=== PATIENT | female | born 1960 | race Caucasian/White ===

== ENCOUNTER → 2016-10-01 | Outpatient (CLI) | payer OTHER ==
[2016-10-01 12:51] LABS: PATH.CAST-FLAG NOT PRESENT; SPERM-FLAG NOT PRESENT; SRC-FLAG NOT PRESENT; XTAL-FLAG NOT PRESENT; YLC-FLAG NOT PRESENT
[2016-10-01 13:05] LABS: BLOOD UREA NITROGEN 17 mg/dL (7-18)
[2016-10-01 13:07] LABS: ASPARTATE AMINO TRANSFERASE 11 U/L (15-37); TRANSFERRIN 226 mg/dL (200-360)
[2016-10-01 13:14] LABS: TOTAL IRON BINDING CAPACITY 289 mcg/dL (250-450)
== END | disposition home or self-care (01) ==
LOC: CFH 06:48
PROVIDERS: ATTEND Nurse Practitioner Primary Care
DX: Z13.220 Encounter for screening for lipoid disorders (principal); Z12.4 Encounter for screening for malignant neoplasm of cervix; Z12.11 Encounter for screening for malignant neoplasm of colon; Z12.39 Encounter for other screening for malignant neoplasm of breast; R53.83 Other fatigue; M85.80 Other specified disorders of bone density and structure, unspecified site; E55.9 Vitamin D deficiency, unspecified; J30.9 Allergic rhinitis, unspecified; Z72.0 Tobacco use; Z78.9 Other specified health status
CPT/HCPCS: 36415; 80053; 80061; 81001; 82248; 82728; 83036; 83540; 83550; 84443; 84466; 85025; 87077; 87086; 87186

== ENCOUNTER → 2017-03-17 | Outpatient (CLI) | payer OTHER | END | disposition home or self-care (01) | LOC: CFH 08:13 | PROVIDERS: ATTEND Nurse Practitioner Primary Care | DX: Z13.220 Encounter for screening for lipoid disorders (principal); Z12.4 Encounter for screening for malignant neoplasm of cervix; Z12.39 Encounter for other screening for malignant neoplasm of breast; Z12.11 Encounter for screening for malignant neoplasm of colon; R53.83 Other fatigue; M85.80 Other specified disorders of bone density and structure, unspecified site; E55.9 Vitamin D deficiency, unspecified; J30.9 Allergic rhinitis, unspecified; Z83.3 Family history of diabetes mellitus; E78.2 Mixed hyperlipidemia; R91.8 Other nonspecific abnormal finding of lung field; N39.0 Urinary tract infection, site not specified; G47.00 Insomnia, unspecified; Z78.9 Other specified health status; Z72.0 Tobacco use | CPT/HCPCS: 36415; 80061 ==

== ENCOUNTER → 2017-12-01 | Outpatient (CLI) | payer OTHER, BC ==
[2017-12-01 12:49] LABS: ALBUMIN 3.6 g/dL (3.4-5.0); ANION GAP 7 mmol/L (5-15); CALCIUM 8.8 mg/dL (8.5-10.1); CHLORIDE 111 mmol/L (98-107)
[2017-12-01 13:02] LABS: ALANINE AMINOTRANSFERASE 34 U/L (12-78); ALKALINE PHOSPHATASE 74 U/L (45-117); BILIRUBIN,TOTAL 0.4 mg/dL (0.2-1.0); CHOL/HDL RATIO 3.2; CHOLESTEROL, TOTAL 126 mg/dL (140-239); CREATININE 0.83 mg/dL (0.55-1.02); HDL CHOL % 31 % (28-40); HDL CHOLESTEROL (DIRECT) 39 mg/dL (40-60); HEMOGLOBIN A1C 5.9 % (4.2-6.3); LDL CHOLESTEROL,CALCULATED 65 mg/dL (54-169); LDL/HDL RATIO 1.7 (0.5-3.0); TOTAL PROTEIN 6.8 g/dL (6.4-8.2); TRIGLYCERIDES 111 mg/dL (50-200); VLDL CHOLESTEROL 22 mg/dL (0-25)
== END | disposition home or self-care (01) ==
LOC: CFH 07:19
PROVIDERS: ATTEND Nurse Practitioner Primary Care
DX: Z12.4 Encounter for screening for malignant neoplasm of cervix (principal); Z12.39 Encounter for other screening for malignant neoplasm of breast; Z12.11 Encounter for screening for malignant neoplasm of colon; Z13.220 Encounter for screening for lipoid disorders; E55.9 Vitamin D deficiency, unspecified; E78.2 Mixed hyperlipidemia; G47.00 Insomnia, unspecified; J30.9 Allergic rhinitis, unspecified; R53.83 Other fatigue; M85.80 Other specified disorders of bone density and structure, unspecified site; Z83.3 Family history of diabetes mellitus; Z72.0 Tobacco use
CPT/HCPCS: 36415; 80053; 80061; 82306; 83036; 84443

== ENCOUNTER → 2018-06-02 | Outpatient (CLI) | payer OTHER, BC ==
[2018-06-02 12:46] LABS: ALBUMIN 3.6 g/dL (3.4-5.0); BILIRUBIN, DIRECT 0.1 mg/dL (0.1-0.2)
[2018-06-02 12:48] LABS: BILIRUBIN,INDIRECT 0.3 mg/dL (0.0-2.0); BILIRUBIN,TOTAL 0.4 mg/dL (0.2-1.0); CHOL/HDL RATIO 2.8; LDL/HDL RATIO 1.5 (0.5-3.0); TOTAL PROTEIN 6.9 g/dL (6.4-8.2)
[2018-06-02 13:07] LABS: HEMOGLOBIN A1C 5.8 % (4.2-6.3)
== END | disposition home or self-care (01) ==
LOC: CFH 07:39
PROVIDERS: ATTEND Nurse Practitioner Primary Care
DX: Z12.11 Encounter for screening for malignant neoplasm of colon (principal); Z13.220 Encounter for screening for lipoid disorders; Z12.4 Encounter for screening for malignant neoplasm of cervix; E55.9 Vitamin D deficiency, unspecified; J30.9 Allergic rhinitis, unspecified; E78.2 Mixed hyperlipidemia; G47.00 Insomnia, unspecified; R53.83 Other fatigue; M85.80 Other specified disorders of bone density and structure, unspecified site
CPT/HCPCS: 36415; 80061; 80076; 83036

== ENCOUNTER → 2019-08-13 | Outpatient (CLI) | payer OTHER, BC ==
[2019-08-13 13:23] LABS: BASOPHILS # (AUTO) 0.06 x10^3/uL (0-0.1); BASOPHILS % (AUTO) 1 % (0-1); EOSINOPHILS # (AUTO) 0.19 x10^3/uL (0-0.4); EOSINOPHILS % (AUTO) 2 % (1-7); LYMPHOCYTES # (AUTO) 1.72 x10^3/uL (1-3.4); LYMPHOCYTES % (AUTO) 22 % (22-44); MD NO; MEAN CORPUSCULAR HEMOGLOBIN 29.9 pg (27.0-34.8); MEAN CORPUSCULAR VOLUME 90.6 fL (80-100); MEAN PLATELET VOLUME 7.6 fL (7.4-10.4); MONOCYTES % (AUTO) 5 % (2-9); NEUTROPHILS # (AUTO) 5.41 x10^3/uL (1.8-6.8); NEUTROPHILS % (AUTO) 70 % (42-75); PLATELET COUNT 236 x10^3/uL (130-400); RED BLOOD COUNT 5.23 x10^6/uL (3.82-5.3); RED CELL DISTRIBUTION WIDTH 13.8 % (9.6-15.2)
[2019-08-13 13:35] LABS: CHLORIDE 112 mmol/L (98-107)
[2019-08-13 14:04] LABS: ALANINE AMINOTRANSFERASE 33 U/L (12-78); ALBUMIN 3.6 g/dL (3.4-5.0); ALKALINE PHOSPHATASE 77 U/L (45-117); ANION GAP 6 mmol/L (5-15); BILIRUBIN,TOTAL 0.6 mg/dL (0.2-1.0); CALCIUM 8.8 mg/dL (8.5-10.1); CHOL/HDL RATIO 3.4; CHOLESTEROL, TOTAL 177 mg/dL (140-239); CREATININE 0.88 mg/dL (0.55-1.02); HDL CHOL % 29 % (28-40); HDL CHOLESTEROL (DIRECT) 52 mg/dL (40-60); LDL CHOLESTEROL,CALCULATED 94 mg/dL (54-169); LDL/HDL RATIO 1.8 (0.5-3.0); TOTAL PROTEIN 7.2 g/dL (6.4-8.2); TRIGLYCERIDES 156 mg/dL (50-200); VLDL CHOLESTEROL 31 mg/dL (0-25)
[2019-08-13 14:05] LABS: FOLATE LEVEL > 20.0 ng/mL (3.1-17.5)
== END | disposition home or self-care (01) ==
LOC: CFH 07:01
PROVIDERS: ATTEND Nurse Practitioner Primary Care
DX: Z13.220 Encounter for screening for lipoid disorders (principal); Z12.4 Encounter for screening for malignant neoplasm of cervix; Z12.39 Encounter for other screening for malignant neoplasm of breast; Z12.11 Encounter for screening for malignant neoplasm of colon; Z00.00 Encounter for general adult medical examination without abnormal findings; E78.2 Mixed hyperlipidemia; G47.00 Insomnia, unspecified; J30.9 Allergic rhinitis, unspecified; E55.9 Vitamin D deficiency, unspecified; M85.80 Other specified disorders of bone density and structure, unspecified site; Z78.9 Other specified health status; Z72.0 Tobacco use; Z83.3 Family history of diabetes mellitus
CPT/HCPCS: 36415; 80053; 80061; 82306; 82607; 82746; 83036; 84443; 85025

== ENCOUNTER → 2019-11-13 | Outpatient (CLI) | payer OTHER, BC ==
[2019-11-13 13:07] LABS: ALANINE AMINOTRANSFERASE 43 U/L (12-78); ALBUMIN 3.7 g/dL (3.4-5.0); ANION GAP 4 mmol/L (5-15); CALCIUM 9.2 mg/dL (8.5-10.1); CHLORIDE 111 mmol/L (98-107); CREATININE 0.85 mg/dL (0.55-1.02)
[2019-11-13 13:10] LABS: ALKALINE PHOSPHATASE 78 U/L (45-117); BILIRUBIN,TOTAL 0.4 mg/dL (0.2-1.0); TOTAL PROTEIN 7.3 g/dL (6.4-8.2)
[2019-11-13 13:14] LABS: MICROSCOPIC AUTO
== END | disposition home or self-care (01) ==
LOC: CFH 08:05
PROVIDERS: ATTEND Internal Medicine
DX: Z13.220 Encounter for screening for lipoid disorders (principal); E78.2 Mixed hyperlipidemia; E55.9 Vitamin D deficiency, unspecified; N39.0 Urinary tract infection, site not specified
CPT/HCPCS: 36415; 80053; 80061; 81001; 82652; 83704; 87077; 87086; 87186

== ENCOUNTER 2019-12-06 14:30 | Outpatient (CLI) | payer OTHER, BC ==
[2019-12-06 16:07] LABS: MICROSCOPIC NOT IND
== END 2019-12-06 23:59 | disposition home or self-care (01) ==
LOC: CFH 14:30
PROVIDERS: ATTEND Nurse Practitioner Primary Care
DX: N39.0 Urinary tract infection, site not specified (principal)
CPT/HCPCS: 81003; 87086